=== PATIENT | male | born 1985 | race Two or more races ===

== ENCOUNTER 2022-10-21 18:37 | Emergency (ER) | payer SELFPAY ==
[~2022-10-21] VITALS: Ht 175.3 cm; Wt 89.5 kg
[2022-10-21 21:13] LABS: Urine Bacteria NONE SEEN /hpf (None Seen); Urine Blood Negative /uL (Negative); Urine Specific Gravity 1.006 (1.001-1.035); Urine WBC <1 /hpf (0 - 3)
[2022-10-21 21:14] LABS: Basophils # (auto) 0 10 ^3/uL (0-0.2); Basophils % (auto) 0.3 % (0.0-2.0); Eosinophils # (auto) 0 10 ^3/uL (0-0.8); Eosinophils % (auto) 0.2 % (0.0-7.0); Hematocrit 46.9 % (41.0-53.0); Hemoglobin 15.6 g/dL (13.5-17.5); Lymphocytes # (auto) 1.2 10 ^3/uL (0.4-5.4); Lymphocytes % (auto) 10.3 % (10.0-50.0); Mean Corpuscular Hgb Conc. 33.3 g/dL (32.0-36.0); Mean Corpuscular Volume 87.1 fL (80.0-100.0); Monocytes # (auto) 0.4 10 ^3/uL (0-1.3); Monocytes % (auto) 3.5 % (0.0-12.0); Neutrophils % (auto) 85.7 % (37.0-80.0); Nucleated Red Blood Cells % 0.2 %; Red Blood Cells 5.39 10^6/uL (4.5-5.90); Red Cell Distribution Width 13.3 % (11.8-14.3); White Blood Cell 11.7 10^3/uL (4.4-10.8)
[2022-10-21 21:25] LABS: BUN/Creatinine Ratio 9.4 (10.0-20.0); Calcium 8.8 mg/dL (8.5-10.1); Potassium 3.7 mmol/L (3.5-5.1)
[2022-10-21 21:28] LABS: Bilirubin, Total 0.3 mg/dL (0.2-1.0); Total Protein 7.6 g/dL (6.4-8.2)
[2022-10-21 22:34] VITALS: BP 120/74
== END 2022-10-21 22:39 | disposition home or self-care (01) ==
LOC: ER 18:37
DX: R10.11 Right upper quadrant pain (principal)
CPT/HCPCS: 36415; 74176; 80053; 81001; 83690; 85025